=== PATIENT | male | born 1985 | race Caucasian/White ===

== ENCOUNTER 2020-06-29 13:17 | Emergency (ER) | payer OTHER ==
[2020-06-29] MEDS ORDERED: TETANUS/DIPHTHERIA TOXOID [ADULT] 0.5 ML VIAL IM ONE (14:00)
== END 2020-06-29 14:32 ==
LOC: EEVIPCON 13:17 → EDH 13:17
DX: S20.311A Abrasion of right front wall of thorax, initial encounter (principal); S30.811A Abrasion of abdominal wall, initial encounter; Y35.893A Legal intervention involving other specified means, suspect injured, initial encounter; Y93.89 Activity, other specified; Y92.89 Other specified places as the place of occurrence of the external cause; Y99.8 Other external cause status
CPT/HCPCS: 90471; 90714; 93005